=== PATIENT | male | born 1995 | race Caucasian/White ===

== ENCOUNTER 2018-02-14 16:22 | Emergency (ER) | payer BC, MEDICAID ==
[~2018-02-14] VITALS: Ht 177.8 cm; Wt 122.5 kg
[~2018-02-14 16:22] MED LIST: IBP800T PO; LISD40CA3 PO
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
[2018-02-14] MEDS ORDERED: ORPHENADRINE 60 MG/2 ML (NORFLEX) AMP IM ONE (17:00)
[2018-02-14] MEDS ORDERED: KETOROLAC 60 MG/2 ML VIAL IM ONE (17:00)
--- NOTE | 2018-02-14 17:05 | ED Back Pain ---
General Chief Complaint: Back Problems Stated Complaint: LOWER BACK AND LEG PAIN Nursing Triage Note: PT CO OF BACK PAIN, WOKE UP W IT A COUPLE WEEKS AGO, CO OF BOTH LEGS HAVING SHARP PAIN 4-5/10, BACK PAIN 8/10 Nursing Sepsis Screen: No Definite Risk Source of Information: Patient, Family Exam Limitations: No Limitations History of Present Illness Date Seen by Provider: Feb 14, 2018 Time Seen by Provider: 16:50 Initial Comments Patient is a 22-year-old male who presents to the emergency room accompanied by his mother with complaints of low back pain that radiates into his thighs bilaterally. He reports that 2 weeks ago he woke up with this pain and has progressively became worse over this time. He denies any loss of bowel or bladder, saddle paresthesia, and numbness and tingling. He denies injury and urinary symptoms. Location: Lumbar Spine Timing/Duration: Other (2 weeks) Severity: Mild Pain/Injury Location: Back Radiation: Upper Legs (thigh laterally) Method of Injury: Unknown Associated Symptoms: No fever, No numbness in legs/feet, No tingling in legs/ feet, No sensory/motor loss; lower back pain; No loss of bladder control, No loss of bowel control Allergies and Home Medications Allergies Coded Allergies: No Known Drug Allergies (Verified , 08/30/07) Home Medications Cyclobenzaprine HCl 10 Mg Tablet, 10 MG PO TID PRN for muscle spasm Prescribed by: CARMELINA PENA on 02/14/18 0018 Patient Home Medication List Home Medication List Reviewed: Yes Constitutional: see HPI; No chills, No diaphoresis Cardiovascular: No edema, No Hx of Intervention Genitourinary: see HPI; No decreased output, No discharge, No incontinence Musculoskeletal: see HPI; No back pain, No gout All Other Systems Reviewed Negative Unless Noted: Yes Past Btbopsg-Tewekh-Lmlmra Hx Past Med/Social Hx: Reviewed Nursing Past Med/Soc Hx Patient Social History Alcohol Use: Denies Use Recreational Drug Use: No Smoking Status: Never a Smoker Recent Foreign Travel: No Contact w/Someone Who Travel: No Recent Infectious Disease Expo: No Recent Hopitalizations: No Physical Abuse: No Sexual Abuse: No Past Medical History Surgeries: Yes (TUBES IN EARS, DENTAL) Orthopedic Respiratory: No Cardiac: No Neurological: No Reproductive Disorders: No Genitourinary: No Gastrointestinal: No Musculoskeletal: No Endocrine: No HEENT: No Cancer: No Psychosocial: Yes ADD/ADHD Nursing Suicide Risk Score: 0 Integumentary: No Blood Disorders: No Family Medical History Reviewed Nursing Family Hx Physical Exam Vital Signs Vital Signs - First Documented 02/14/18 16:35 Temp 97.2 Pulse 77 Resp 18 B/P (MAP) 139/82 (101) Pulse Ox 96 Capillary Refill : Less Than 3 Seconds Height, Weight, BMI Height: 5'10.00" Weight: 270lbs. oz. 122.699497vp; BMI Method:Stated General Appearance: No Apparent Distress, WD/WN Neck: Full Range of Motion, Normal Inspection, Non Tender, Supple Cardiovascular: Regular Rate, Rhythm, No Edema, No Gallop, No JVD, No Murmur, Normal Peripheral Pulses Respiratory: Chest Non Tender, Lungs Clear, Normal Breath Sounds, No Accessory Muscle Use, No Respiratory Distress Back: Normal Inspection, No CVA Tenderness, Vertebral Tenderness (lumbar area) Extremity: Normal Capillary Refill, Normal Inspection, Normal Range of Motion, Non Tender, No Calf Tenderness Neurologic/Psychiatric: Alert, Oriented x3, Normal Mood/Affect Progress/Results/Core Measures Results/Orders My Orders Orders - JEANCARMELINA Ketorolac Injection (Toradol Injection) (02/14/18 17:00) Orphenadrine Injection (Norflex Injectio (02/14/18 17:00) Medications Given in ED Vital Signs/I&O 02/14/18 02/14/18 16:35 18:03 Temp 97.2 97.2 Pulse 77 77 Resp 18 18 B/P (MAP) 139/82 (101) 139/82 (101) Pulse Ox 96 96 Blood Pressure Mean: 101 Progress Progress Note : Time: 17:30 Progress Note 1730: Patient reports feeling much better at this time he thinks that the medications really work. I informed him that we continue the muscle relaxants at home in addition to ibuprofen and Tylenol as directed. He agrees with plan of care and agrees for discharge. Departure Impression Primary Impression: Back pain Disposition: 01 HOME, SELF-CARE Condition: Stable/Unchanged Departure-Patient Inst. Decision time for Depature: 17:52 Referrals: NO,LOCAL PHYSICIAN (PCP) Primary Care Physician Patient Instructions: Low Back Pain (DC) Add. Discharge Instructions: You may use ibuprofen and Tylenol as directed by the bottle. Take medication as directed. Follow up with your doctor within 1 week for recheck. Return back to the emergency room for any concerns as needed. All discharge instructions reviewed with patient and/or family. Voiced understanding. Scripts Cyclobenzaprine HCl (Cyclobenzaprine HCl) 10 Mg Tablet 10 MG PO TID PRN for muscle spasm, #15 TAB Prov: CARMELINA PENA 02/14/18 CARMELINA PENA Feb 14, 2018 17:05
[2018-02-14] MEDS ORDERED: CYCL10TA9 PO (17:55)
[2018-02-14 18:03] VITALS: BP 139/82
== END 2018-02-14 18:05 | disposition home or self-care (01) ==
LOC: EDUNIT# 16:22 → ER 16:24
DX: M54.5 Low back pain (principal); F90.9 Attention-deficit hyperactivity disorder, unspecified type
CPT/HCPCS: 96372; 99284

== ENCOUNTER → 2018-05-19 | Emergency (ER) | payer OTHER ==
[~2018-05-19] VITALS: Ht 177.8 cm; Wt 122.5 kg
[~2018-05-19] MED LIST changes: +CYCL10TA9 PO
--- OUTSIDE RECORDS SUMMARY | 2018-05-19 17:36 | XMS REPORT | Continuity of Care Document ---
Author Author [facility] Organization [facility] Address Unknown Phone Unavailable Allergies Active Description Code Type Severity Reaction Onset Reported/Identified Relationship to Patient Clinical Status Yes No Known Drug Allergies [id number] Drug Allergy Unknown N/A 08/30/2007 Medications There [...] Ot V58.83 ENCOUNTER FOR THERAPEUTIC DRUG MONITORIN 02/14/2018 CARMELINA PENA Ot F90.9 ATTENTION-DEFICIT HYPERACTIVITY DISORDER 02/14/2018 CARMELINA PENA Ot M54.5 LOW BACK PAIN 02/17/2018 CARMELINA PENA Ot F90.9 ATTENTION-DEFICIT HYPERACTIVITY DISORDER 02/17/2018 CARMELINA PENA Ot M54.5 LOW BACK PAIN Procedures There is no data. Results There is no data. Encounters ACCT No. Visit Date/Time Discharge Status Pt. Type Provider Facility Loc./Unit Complaint [id number] 02/14/2018 16:24:00 02/14/2018 18:05:00 DIS Emergency CARMELINA PENA [facility] ER LOWER BACK AND LEG PAIN [id number] 03/24/2016 11:59:00 03/24/2016 23:59:59 CLS Outpatient PATRICE SRINIVASAN APRN [facility] QUICK [id number] 01/16/2014 15:23:00 01/16/2014 23:59:59 CLS Outpatient [id number] 02/25/2013 08:41:00 02/25/2013 23:59:59 CLS Outpatient [id number] 03/03/2015 09:49:00 Document Registration [id number] 08/29/2012 18:38:00 Document Registration [id number] 02/28/2012 13:43:00 Document Registration [id number] 03/12/2011 15:40:00 Document Registration [id number] 12/09/2010 22:06:00 Document Registration [id number] 10/30/2010 06:55:00 Document Registration [id number] 01/26/2010 09:52:00 Document Registration
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
[2018-05-19 18:25] VITALS: BP 142/86
== END | disposition home or self-care (01) ==
LOC: EDUNIT# 17:32 → ER 17:32
DX: S40.011A Contusion of right shoulder, initial encounter (principal); R20.0 Anesthesia of skin; F90.9 Attention-deficit hyperactivity disorder, unspecified type; V49.50XA Passenger injured in collision with unspecified motor vehicles in traffic accident, initial encounter
CPT/HCPCS: 73030

== ENCOUNTER 2018-12-19 14:47 | Emergency (ER) | payer SELFPAY ==
[~2018-12-19] VITALS: Ht 177.8 cm; Wt 122.5 kg
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
--- NOTE | 2018-12-19 15:49 | Diagnostic Imaging Report ---
INDICATION: Left superior shoulder pain, fall. TIME OF EXAM: 03:38 p.m. FINDINGS: Three views of the left shoulder were obtained. Glenohumeral and acromioclavicular alignment is normal. Acromiohumeral space is normal. No fracture or dislocation is seen. IMPRESSION: No acute bony abnormality is detected. Dictated by: Dictated on workstation # [id number]
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
[2018-12-19] MEDS ORDERED: IBUPROFEN 800 MG (MOTRIN) TAB PO STA (15:58)
[2018-12-19 16:04] VITALS: BP 140/81
== END 2018-12-19 16:04 | disposition home or self-care (01) ==
LOC: EDUNIT# 14:47 → ER 14:49
DX: M25.512 Pain in left shoulder (principal); M25.562 Pain in left knee; F90.9 Attention-deficit hyperactivity disorder, unspecified type; Z90.89 Acquired absence of other organs; Z96.22 Myringotomy tube(s) status; W01.0XXA Fall on same level from slipping, tripping and stumbling without subsequent striking against object, initial encounter
CPT/HCPCS: 73030

== ENCOUNTER 2020-07-21 13:05 | Emergency (ER) | payer SELFPAY ==
[~2020-07-21] VITALS: Ht 180.3 cm; Wt 127.0 kg
[2020-07-21] MEDS ORDERED: TETANUS,DIPTH,PERTUSS P/F (BOOSTRIX) 0.5 ML VIAL IM ONE (13:30)
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
[2020-07-21 15:34] VITALS: BP 127/87
== END 2020-07-21 15:36 | disposition home or self-care (01) ==
LOC: EDUNIT# 13:05 → ER 13:07
DX: S01.81XA Laceration without foreign body of other part of head, initial encounter (principal); S40.012A Contusion of left shoulder, initial encounter; S40.011A Contusion of right shoulder, initial encounter; Z23 Encounter for immunization; V89.2XXA Person injured in unspecified motor-vehicle accident, traffic, initial encounter
CPT/HCPCS: 70450; 71045; 72125; 90715

== ENCOUNTER → 2021-10-24 | Outpatient (REF) ==
[~2021-10-24] MED LIST changes: +CYCL10TA25 PO; -CYCL10TA9 PO
--- NOTE | 2021-10-24 16:09 | Diagnostic Imaging Report ---
INDICATION: Fall with right hand injury. TIME OF EXAM: 3:54 PM Three views of the right hand were obtained. The metacarpals appear to be intact. The phalanges appear intact. No fractures are seen. Carpus is unremarkable. IMPRESSION: No acute bony abnormality is detected. Dictated by: Dictated on workstation # [id number]
--- NOTE | 2021-10-24 16:10 | Diagnostic Imaging Report ---
Indication: Fall, right shoulder injury. Time Of Exam: 3:51 PM Three views of the right shoulder were obtained. The glenohumeral and acromioclavicular alignment are normal. Acromiohumeral space is normal. No fractures are seen. There is no dislocation. IMPRESSION: No acute bony abnormality is detected. Dictated by: Dictated on workstation # [id number]
--- NOTE | 2021-10-24 16:10 | Diagnostic Imaging Report ---
Indication: Fall with right elbow injury. Time of Exam: 3:55 PM Three views of the right elbow were obtained. Alignment is normal. Joint spaces are well-maintained. No fracture, dislocation or effusion is detected. IMPRESSION: No acute abnormality is detected. Dictated by: Dictated on workstation # [id number]
== END ==
LOC: OCC 15:40
PROVIDERS: ATTEND Family Medicine
DX: S49.91XA Unspecified injury of right shoulder and upper arm, initial encounter (principal); S69.91XA Unspecified injury of right wrist, hand and finger(s), initial encounter; S59.901A Unspecified injury of right elbow, initial encounter; W19.XXXA Unspecified fall, initial encounter
CPT/HCPCS: 73030; 73080; 73130